=== PATIENT | female | born 1965 | race Caucasian/White ===

== ENCOUNTER 2023-06-18 18:43 | Emergency (ER) | payer MEDICAID ==
[~2023-06-18] VITALS: Ht 167.6 cm; Wt 90.7 kg
[2023-06-18 19:12] VITALS: BP_SYST 131; PULSE 84; RESP 16; TEMP 98; O2SAT 96
[2023-06-18] MEDS ORDERED: IBUP-1969 PO (22:16)
[2023-06-18] MEDS ORDERED: CLIN-142 PO (22:16)
[2023-06-18] MEDS: KETOROLAC TROMETHAMINE 30 MG VIAL IM ONE (22:31)
[2023-06-18] MEDS: CLINDAMYCIN HCL 150 MG CAPSULE PO ONE (22:34)
[2023-06-18] MEDS: DEXAMETHASONE SOD PHOSPHATE 10 MG/ML VIAL PO ONE (22:34)
[2023-06-18 22:45] VITALS: BP_SYST 131; PULSE 84; RESP 16; TEMP 98; O2SAT 96
== END 2023-06-18 22:44 | disposition home or self-care (01) ==
LOC: SED 18:43
DX: K04.7 Periapical abscess without sinus (principal); R22.0 Localized swelling, mass and lump, head; J02.9 Acute pharyngitis, unspecified; Z88.0 Allergy status to penicillin; Z79.899 Other long term (current) drug therapy
CPT/HCPCS: 99283; 96372; J1100; J1885